=== PATIENT | male | born 1945 | race Caucasian/White ===

== ENCOUNTER 2023-12-07 16:54 | Emergency (ER) | payer OTHER, BC ==
[2023-12-07] MEDS ORDERED: HYDROCODONE/APAP 10/325 TAB ONE (18:06)
--- NOTE | 2023-12-07 19:53 | RAD REPORT ---
EXAM DESCRIPTION: CT - Chest Abd Pelvis Wo Con - 12/07/2023 7:02 pm CLINICAL HISTORY: BLUNT CHEST TRAUMA COMPARISON: No comparisons TECHNIQUE: Thin axial CT images of the chest, abdomen, and pelvis, performed without IV contrast. Mu ltiplanar reformats were generated and reviewed. All CT scans are performed using dose optimization technique as appropriate and may include automated exposure control or mA/KV adjustment according to patient size. FINDINGS: The lungs are clear.No pleural or pericardial effusion.No intrathoracic adenopathy. The liver, spleen, pancreas, adrenal glands and kidneys are within normal limits. No bowel obstruction, free air, free fluid or abscess. Left inguinal hernia containing nondistended l arge bowel. No pathologic lymphadenopathy in the abdomen or pelvis. Prostatomegaly. No worrisome osseous finding. IMPRESSION: No acute findings in the chest abdomen, or pelvis. Left inguinal hernia containing nondistended large bowel.
--- NOTE | 2023-12-07 20:03 | ER ---
Nurse's Notes [facility] Name: Miguel Oconnell Age: 78 yrs Sex: Male : 1945 Arrival Date: 12/07/2023 Time: 16:54 Bed 10 Private MD: Brenda Rajput Diagnosis: Fall from ladder;Chest wall pain;Left inguinal hernia Presentation: 12/06 17:07 Chief complaint: Patient states: Fell approximately 10 ft off of a ladder on 12/03 onto ss R shoulder. Pt c/o pain to R shoulder and R lateral chest wall. Denies LOC. Superficial abrasions noted to bilateral forearms and legs. Coronavirus screen: Client denies travel out of the [place] in the last 14 days. Ebola Screen: Patient denies exposure to infectious person. Patient denies travel to an Ebola-affected area in the 21 days before illness onset. Initial Sepsis Screen: Does the patient meet any 2 criteria? No. Patient's initial sepsis screen is negative. Does the patient have a suspected source of infection? No. Patient's initial sepsis screen is negative. Risk Assessment: Do you want to hurt yourself or someone else? Patient reports no desire to harm self or others. Onset of symptoms was December 04, 2023. 17:07 Method Of Arrival: Ambulatory ss 17:07 Acuity: SHAR 3 ss Triage Assessment: 17:11 General: Appears uncomfortable, Behavior is calm, cooperative. Pain: Complains of pain ss in R shoulder, R lateral chest wall Pain currently is 1 out of 10 on a pain scale. at worst was 8 out of 10 on a pain scale. Aggravated by increased activity. Neuro: Level of Consciousness is awake, alert, obeys commands, Oriented to person, place, time, situation. Respiratory: Airway is patent is compromised Respiratory effort is even, unlabored. Derm: Skin is intact, is healthy with good turgor, Skin is dry, Skin is pink, warm \T\ dry. normal. Historical: - Allergies: 17:11 No Known Allergies; ss - PMHx: 17:11 Hypertensive disorder; Abdominal aortic aneurysm; 3 cm; ss - PSHx: 17:11 None; ss - Immunization history:: Client reports receiving the 2nd dose of the Covid vaccine. - Infectious Disease History:: Denies. - Social history:: Smoking status: Patient denies any tobacco usage or history of. - Family history:: not pertinent. Screenin:00 [facility] ED Fall Risk Assessment (Adult) History of falling in the last 3 months, nj1 including since admission Yes- single mechanical fall (1 pt) Confusion or Disorientation No (0 pts) Intoxicated or Sedated No (0 pts) Impaired Gait No (0 pts) Mobility Assist Device Used No (0 pt) Altered Elimination No (0 pt) Score/Fall Risk Level 0 - 2 = Low Risk Oriented to surroundings, Maintained a safe environment, Hourly rounding (assess needs \T\ fall precautionary measures) done. Abuse screen: Denies threats or abuse. Denies injuries from another. Nutritional screening: No deficits noted. Tuberculosis screening: No symptoms or risk factors identified. Assessment: 18:00 General: Appears in no apparent distress. uncomfortable, Behavior is calm, cooperative, nj1 appropriate for age. Pain: Complains of pain in chest, right side Pain currently is 1 out of 10 on a pain scale. at worst was 8 out of 10 on a pain scale. 18:00 Neuro: Level of Consciousness is awake, alert, obeys commands, Oriented to person, nj1 place, time, situation. Cardiovascular: Patient's skin is warm and dry. Respiratory: Airway is patent Respiratory effort is even, unlabored. Musculoskeletal: Reports pain in chest. 18:47 Reassessment: Patient appears in no apparent distress at this time. Patient and/or nj1 family updated on plan of care and expected duration. Pain level reassessed. Patient is alert, oriented x 3, equal unlabored respirations, skin warm/dry/pink. 20:11 Reassessment: Patient appears in no apparent distress at this time. Patient and/or lg3 family updated on plan of care and expected duration. Pain level reassessed. Patient is alert, oriented x 3, equal unlabored respirations, skin warm/dry/pink. Patient states symptoms have improved. Vital Signs: 17:07 BP 132 / 81; Pulse 71; Resp 17; Temp 97.4(TE); Pulse Ox 99% on R/A; Weight 113.4 kg; ss Height 5 ft. 9 in. ; Pain 8/10; 20:11 BP 129 / 84; Pulse 76; Resp 16 S; Temp 97.1; Pulse Ox 99% on R/A; lg3 17:07 Body Mass Index 36.92 (113.40 kg, 175.26 cm) ss 17:07 Pain Scale: Adult ss ED Course: 16:58 Patient arrived in ED. mr 16:59 Uriahsupriya Brenda is Private Physician. mr 17:11 Triage completed. ss 17:11 Arm band placed on right wrist. ss 17:25 Jasen Og MD is Attending Physician. rt 17:57 Candace Monteiro, RN is Primary Nurse. nj1 18:00 Patient has correct armband on for positive identification. Bed in low position. Call nj1 light in reach. Adult w/ patient. Provided Education on: call light, fall precautions. 19:04 CT Chest Abdomen Pelvis W/O Contrast In Process Unspecified. EDMS 20:02 Santos Dee MD is Referral Physician. rt 20:13 No provider procedures requiring assistance completed. Patient did not have IV access lg3 during this emergency room visit. Administered Medications: 18:00 Drug: [place] PO 10 mg-325 mg 1 tabs PO once Route: PO; nj1 20:13 Follow up: Response: No adverse reaction; Marked relief of symptoms; Pain is decreased lg3 Medication: 20:11 VIS not applicable for this client. lg3 Outcome: 20:02 Discharge ordered by MD. rt 20:14 Discharged to home ambulatory, lg3 20:14 Condition: stable 20:14 Discharge instructions given to patient, Instructed on discharge instructions, follow up and referral plans. medication usage, Demonstrated understanding of instructions, follow-up care, medications, Prescriptions given X 1, 20:14 Patient left the ED. lg3 Signatures: Dispatcher [employer] EDWV Gaby Miller, Reg Reg Mariela Hollingsworth, RN RN Heather Carpenter RN RN lg3 Jasen Og MD MD rt Candace Motneiro, LU RN nj1
--- NOTE | 2023-12-07 20:03 | EDPHYS ---
Physician Documentation [facility] Name: Miguel Oconnell Age: 78 yrs Sex: Male : 1945 Arrival Date: 12/07/2023 Time: 16:54 Bed 10 Private MD: Brenda Rajput ED Physician Jasen Og HPI: 12/06 19:32 This 78 yrs old Male presents to ER via Ambulatory with complaints of Pain All Over, rt Fell off ladder 12/04/2023. 19:32 Patient presents to the ED with pain to the right side after falling about 10 feet off rt a ladder. [facility] is denying any significant arm pain at this time. Reports pain to the right side of the chest, abdomen. Worse with movement. Denies other acute complaints at this time, symptoms are moderate in severity, no other aggravating or alleviating factors.. 19:32 Denies hitting his head, loss of consciousness, back, neck pain. rt Historical: - Allergies: 17:11 No Known Allergies; ss - PMHx: 17:11 Hypertensive disorder; Abdominal aortic aneurysm; 3 cm; ss - PSHx: 17:11 None; ss - Immunization history:: Client reports receiving the 2nd dose of the Covid vaccine. - Infectious Disease History:: Denies. - Social history:: Smoking status: Patient denies any tobacco usage or history of. - Family history:: not pertinent. ROS: 19:32 Constitutional: Negative for fever, chills, and weight loss, Neck: Negative for injury, rt pain, and swelling, Respiratory: Negative for shortness of breath, cough, wheezing, and pleuritic chest pain, MS/Extremity: Negative for injury and deformity, Skin: Negative for injury, rash, and discoloration, Neuro: Negative for headache, weakness, numbness, tingling, and seizure, Psych: Negative for depression, anxiety, suicide ideation, homicidal ideation, and hallucinations, 19:32 Cardiovascular: Positive for chest pain, Negative for edema, 19:32 Respiratory: 19:32 Abdomen/GI: Positive for abdominal pain, Negative for nausea and vomiting, Exam: 19:34 Constitutional: This is a well developed, well nourished patient who is awake, alert, rt and in no acute distress. Head/Face: Normocephalic, atraumatic. Neck: Trachea midline, no thyromegaly or masses palpated, and no cervical lymphadenopathy. Supple, full range of motion without nuchal rigidity, or vertebral point tenderness. No Meningismus. Cardiovascular: Regular rate and rhythm with a normal S1 and S2. No gallops, murmurs, or rubs. Normal PMI, no JVD. No pulse deficits. Respiratory: Lungs have equal breath sounds bilaterally, clear to auscultation and percussion. No rales, rhonchi or wheezes noted. No increased work of breathing, no retractions or nasal flaring. Back: No spinal tenderness. No costovertebral tenderness. Full range of motion. Skin: Warm, dry with normal turgor. Normal color with no rashes, no lesions, and no evidence of cellulitis. MS/ Extremity: Pulses equal, no cyanosis. Neurovascular intact. Full, normal range of motion. Neuro: Awake and alert, GCS 15, oriented to person, place, time, and situation. Cranial nerves II-XII grossly intact. Motor strength 5/5 in all extremities. Sensory grossly intact. Cerebellar exam normal. Normal gait. 19:34 Chest/axilla: Tenderness over right lower chest, no crepitus, deformities. 19:34 Abdomen/GI: Mild tenderness on the right upper side, abdomen, no bruising, distention, Vital Signs: 17:07 BP 132 / 81; Pulse 71; Resp 17; Temp 97.4(TE); Pulse Ox 99% on R/A; Weight 113.4 kg; ss Height 5 ft. 9 in. ; Pain 8/10; 20:11 BP 129 / 84; Pulse 76; Resp 16 S; Temp 97.1; Pulse Ox 99% on R/A; lg3 17:07 Body Mass Index 36.92 (113.40 kg, 175.26 cm) ss 17:07 Pain Scale: Adult ss MDM: 17:37 Patient medically screened. rt 20:04 Differential Diagnosis Rib fracture, pneumothorax, blunt chest trauma, liver rt laceration. Data reviewed: vital signs, nurses notes, radiologic studies. Independent interpretation of the following test(s) in the Emergency Department CT Scan: My interpretation is No pneumothorax seen on interpretation of CT scan images. Care significantly affected by the following chronic conditions: Hypertension. Counseling: I had a detailed discussion with the patient and/or guardian regarding the historical points, exam findings, and any diagnostic results supporting the discharge/admit diagnosis, radiology results, the need for outpatient follow up. 12/06 17:50 Order name: CT Chest Abdomen Pelvis W/O Contrast; Complete Time: 19:54 rt Administered Medications: 18:00 Drug: Ten[place] PO 10 mg-325 mg 1 tabs PO once Route: PO; nj1 20:13 Follow up: Response: No adverse reaction; Marked relief of symptoms; Pain is decreased lg3 Disposition Summary: 12/07/23 20:02 Discharge Ordered Notes: Location: Home rt Problem: new rt Symptoms: have improved rt Condition: Stable rt Diagnosis - Fall from ladder rt - Chest wall pain rt - Left inguinal hernia rt Followup: rt - With: Santos Dee MD - When: 7 - 10 days - Reason: Discharge Instructions: - Discharge Summary Sheet rt - Inguinal Hernia, Adult rt - Blunt Chest Trauma rt Forms: - Medication Reconciliation Form rt - Antibiotic Education rt - Prescription Opioid Use rt - Patient Portal Instructions rt - Leadership Thank You Letter rt Prescriptions: - acetaminophen-codeine 300-30 mg Oral tablet - take 1 tablet ORAL route every 6 hours as needed for pain; 12 tablet; Refills: rt 0, Product Selection Permitted Signatures: Dispatcher [employer] Mariela Lindsay, RN RN Jasen Davis MD MD rt Candace Monteiro RN RN nj1 Heather Carpenter RN lg3
[2023-12-07 21:48] VITALS: BP 129/84; TEMP 97.1; O2SAT 99
== END 2023-12-07 20:14 | disposition home or self-care (01) ==
LOC: ER 16:54
DX: R07.89 Other chest pain (principal); K40.90 Unilateral inguinal hernia, without obstruction or gangrene, not specified as recurrent; W11.XXXA Fall on and from ladder, initial encounter; I10 Essential (primary) hypertension
CPT/HCPCS: 71250; 74176

== ENCOUNTER 2025-05-18 16:45 | Emergency (ER) | payer OTHER, BC ==
[2025-05-18] MEDS ORDERED: LIDOCAINE 1% MPF 5 ML VIAL ONE (17:23)
--- NOTE | 2025-05-18 18:00 | RAD REPORT ---
EXAMINATION: Head Brain Wo Cont CLINICAL INDICATION: Male, 80 years old.TRAUMA TECHNIQUE: Axial CT images from the skull base to the vertex without intravenous contrast. Coronal an d sagittal reformatted images were created from the data set. One or more of the following dose reduction techniques were used: Automated exposure control, adjustment of the mA and/or kV according to patient size, and/or iterative reconstruction. Unless otherwise specified, incidental findings do not require dedicated imaging follow-up. [id number]. COMPARISON: No prior exams FINDINGS: INTRACRANIAL: No acute intracranial hemorrhage. No acute large vascular territory infarct. No hydroce phalus. No mass effect or midline shift. No significant white matter disease. VASCULATURE: No visualized abnormalities in the arteries or dural venous sinuses. SCALP/SKULL: No calvarial fracture identified. No acute soft tissue abnormality. SINUSES: The visualized paranasal sinuses are mostly clear. No significant mastoid fluid. IMPRESSION: No acute intracranial abnormality.
--- NOTE | 2025-05-18 18:11 | ER ---
Nurse's Notes [facility] Name: Miguel Oconnell Age: 80 yrs Sex: Male : 1945 Arrival Date: 05/18/2025 Time: 16:45 Bed 11 Private MD: Diagnosis: Laceration without foreign body of scalp Presentation: 05/18 17:12 Chief complaint: Chief complaint: Patient states: HEAD LACERATION STATES HIT TOP OF db HEAD ON EDGE OF A TABLE. DENIES LOC. STATES IS ON XARELTO. 17:14 Coronavirus screen: Client denies travel out of the [place] in the last 14 days. At this db time, the client does not indicate any symptoms associated with coronavirus-19. Ebola Screen: Patient negative for fever greater than or equal to 101.5 degrees Fahrenheit, and additional compatible Ebola Virus Disease symptoms Patient denies exposure to infectious person. Patient denies travel to an Ebola-affected area in the 21 days before illness onset. No symptoms or risks identified at this time. Initial Sepsis Screen: Does the patient meet any 2 criteria? No. Patient's initial sepsis screen is negative. Does the patient have a suspected source of infection? No. Patient's initial sepsis screen is negative. Risk Assessment: Do you want to hurt yourself or someone else? Patient reports no desire to harm self or others. Onset of symptoms was May 18, 2025. 17:14 Method Of Arrival: Ambulatory db 17:14 Acuity: SHAR 3 db Triage Assessment: 17:14 General: Appears in no apparent distress. comfortable, Behavior is calm, cooperative. db Pain: Complains of pain in left frontal area. Neuro: Level of Consciousness is awake, alert, obeys commands, Oriented to person, place, time, situation. Derm: Wound noted left frontal area. Historical: - Allergies: 17:16 No Known Allergies; db - PMHx: 17:14 abdominal aortic aneurysm; 3 cm; Hypertensive disorder; db - Immunization history:: Adult Immunizations unknown. - Infectious Disease History:: Denies. - Social history:: Smoking status: Patient denies any tobacco usage or history of. Screenin:00 [facility] ED Fall Risk Assessment (Adult) History of falling in the last 3 months, iw including since admission No falls in past 3 months (0 pts) Confusion or Disorientation No (0 pts) Intoxicated or Sedated No (0 pts) Impaired Gait No (0 pts) Mobility Assist Device Used No (0 pt) Altered Elimination No (0 pt) Score/Fall Risk Level 0 - 2 = Low Risk Oriented to surroundings, Maintained a safe environment. Abuse screen: Denies threats or abuse. Denies injuries from another. Nutritional screening: No deficits noted. Tuberculosis screening: No symptoms or risk factors identified. Assessment: 18:00 General: Appears Behavior is calm, cooperative. iw Vital Signs: 17:14 BP 130 / 80; Pulse 58; Resp 16; Temp 98.6; Pulse Ox 98% ; Weight 113.4 kg; Height 5 ft. db 9 in. ; 17:14 Body Mass Index 36.92 (113.40 kg, 175.26 cm) db ED Course: 16:50 Patient arrived in ED. sj2 16:51 Malia Haro PA-C is PHCP. sb4 16:51 Topher Bianchi MD is Attending Physician. sb4 17:14 Arm band placed on Patient placed. db 17:15 Triage completed. db 17:49 Head Brain Wo Cont CT In Process Unspecified. EDMS 18:25 Assist provider with laceration repair on left frontal area that was between 2.6 to 7.5 iw cm using jeovany. Set up tray. Performed by Malia Haro PA-C Patient tolerated well. Patient did not have IV access during this emergency room visit. 18:33 Pge Raya, RN is Primary Nurse. iw Administered Medications: 18:10 Drug: Lidocaine Infiltration (1 %) 5 ml 5 ml Infiltration once; to bedside Volume: 5 sb4 ml; Route: Infiltration; Medication: 18:00 VIS not applicable for this client. iw Outcome: 18:11 Discharge ordered by . sb4 18:33 Discharged to home ambulatory, with family, iw 18:33 Condition: good 18:33 Discharge instructions given to patient, Instructed on discharge instructions, follow up and referral plans. Demonstrated understanding of instructions, follow-up care, Prescriptions given X 18:35 Patient left the ED. iw Signatures: Dispatcher [employer] EDMS Peg Raya RN RN iw Valentina Vasques RN RN db Malia Haro PA-C PA-C sb4 Wesley Beltran sj2 Corrections: (The following items were deleted from the chart) 17:15 17:12 Chief complaint: db db
--- NOTE | 2025-05-18 18:12 | EDPHYS ---
Physician Documentation [facility] Name: Miguel Oconnell Age: 80 yrs Sex: Male : 1945 Arrival Date: 05/18/2025 Time: 16:45 Bed 11 Private MD: ED Physician Topher Bianchi HPI: 05/18 17:33 This 80 yrs old Male presents to ER via Ambulatory with complaints of Laceration To sb4 Head. 17:33 Patient states that he stood up and hit the top of his head on furniture, or sustaining sb4 a laceration. States that it bled a moderate amount that he is old Xarelto. He denies any loss of consciousness, dizziness, nausea, vomiting. Does report pain in the area of the laceration. States his tetanus shot is up-to-date. Historical: - Allergies: 17:16 No Known Allergies; db - PMHx: 17:14 abdominal aortic aneurysm; 3 cm; Hypertensive disorder; db - Immunization history:: Adult Immunizations unknown. - Infectious Disease History:: Denies. - Social history:: Smoking status: Patient denies any tobacco usage or history of. ROS: 17:33 Constitutional: Negative for fever, chills, and weight loss, sb4 17:33 Skin: Positive for laceration(s), of the left frontal area, 17:33 All other systems are negative, Exam: 17:33 Constitutional: This is a well developed, well nourished patient who is awake, alert, sb4 and in no acute distress. Eyes: Extra-ocular motions intact. Periorbital areas with no swelling, redness, or edema. ENT: Mucous membranes moist. Respiratory: No increased work of breathing, no retractions or nasal flaring. Skin: Warm, dry with normal turgor. Normal color with no rashes, no lesions, and no evidence of cellulitis. 17:33 Head/face: Noted is a laceration(s), that is superficial, 5 cm(s), of the left frontal area, 17:44 Skin: injury, laceration(s), the wound is approximately 5 cm(s), with a depth of .5 sb4 cm(s), of the left frontal area, that can be described as clean, no foreign body, irregular, with mild bleeding, Vital Signs: 17:14 BP 130 / 80; Pulse 58; Resp 16; Temp 98.6; Pulse Ox 98% ; Weight 113.4 kg; Height 5 ft. db 9 in. ; 17:14 Body Mass Index 36.92 (113.40 kg, 175.26 cm) db Laceration: 18:10 Wound Repair of 5cm ( 2.0in ) subcutaneous laceration to left frontal area. Irregularly sb4 shaped.. Distal neuro/vascular/tendon intact. Anesthesia: Local anesthetic administered with 4 mls of 1% lidocaine. Wound prep: Simple cleansing with betadine by me, Wound irrigation with saline by me, Wound explored, Copious irrigation. Skin closed with 4 Will using staple gun. Dressed with non-adherent dressing. Patient tolerated well. MDM: 16:52 Medical Screening Exam initiated sb4 18:10 Differential diagnosis: closed head injury, contusion, fracture, laceration. Data sb4 reviewed: vital signs, nurses notes, radiologic studies, CT scan, and as a result, I will discharge patient. Care significantly affected by the following chronic conditions: Hypertension. Counseling: I had a detailed discussion with the patient and/or guardian regarding the historical points, exam findings, and any diagnostic results supporting the discharge/admit diagnosis, radiology results, the need for outpatient follow up, for staple removal 1 week, to return to the emergency department if symptoms worsen or persist or if there are any questions or concerns that arise at home. 05/18 17:15 Order name: Head Brain Wo Cont CT; Complete Time: 18:00 sb4 05/18 17:15 Order name: Wound Care; Complete Time: 18:33 sb4 Administered Medications: 18:10 Drug: Lidocaine Infiltration (1 %) 5 ml 5 ml Infiltration once; to bedside Volume: 5 sb4 ml; Route: Infiltration; Disposition Summary: 05/18/25 18:11 Discharge Ordered Notes: Location: Home sb4 Problem: new sb4 Symptoms: have improved sb4 Condition: Stable sb4 Diagnosis - Laceration without foreign body of scalp sb4 Followup: sb4 - With: Private Physician - When: 1 week - Reason: Staple/Suture removal Discharge Instructions: - Discharge Summary Sheet sb4 - Laceration Care, Adult, [id number] sb4 - Sutures, [place], or Adhesive Wound Closure, [id number] sb4 Forms: - Patient Portal Instructions sb4 - Leadership Thank You Letter sb4 Addendum: 05/28/2025 07:59 Co-signature as Attending Physician, Topher Bianchi MD I agree with the assessment and c mckinley plan of care. Signatures: Dispatcher [employer] EDMS Topher Bianchi MD MD cha Benton, Danielle, RN RN Malia Francis, PAEmeliC PAEmeliC sb4 Corrections: (The following items were deleted from the chart) 05/18 17:15 17:15 Head Brain Wo Cont+CT.RAD.BRZ ordered. [facility] 17:44 17:33 Head/face: Noted is a laceration(s), that is superficial, 5 cm(s), of the left sb4 frontal area, sb4
[2025-05-18 19:43] VITALS: BP 130/80; TEMP 98.6; O2SAT 98
== END 2025-05-18 18:35 | disposition home or self-care (01) ==
LOC: ER 16:45
DX: S01.01XA Laceration without foreign body of scalp, initial encounter (principal)
CPT/HCPCS: 70450; 99283; 12032; J2003

== ENCOUNTER 2025-05-25 15:11 | Emergency (ER) | payer OTHER, BC ==
--- NOTE | 2025-05-25 16:00 | ER ---
Nurse's Notes [facility] Name: Miguel Oconnell Age: 80 yrs Sex: Male : 1945 Arrival Date: 05/25/2025 Time: 15:11 Bed 10 Private MD: Diagnosis: Encounter for staple removal Presentation: 05/25 15:49 Chief complaint: Patient states: Needs jeovany removed from scalp, placed 7 days ago. ll1 No fever or pain. Coronavirus screen: Client denies travel out of the [place] in the last 14 days. At this time, the client does not indicate any symptoms associated with coronavirus-19. Ebola Screen: Patient denies travel to an Ebola-affected area in the 21 days before illness onset. Initial Sepsis Screen: Does the patient meet any 2 criteria? No. Patient's initial sepsis screen is negative. Does the patient have a suspected source of infection? No. Patient's initial sepsis screen is negative. Risk Assessment: Do you want to hurt yourself or someone else? Patient reports no desire to harm self or others. Onset of symptoms was May 18, 2025. 15:49 Method Of Arrival: Ambulatory ll1 15:49 Acuity: SHAR 5 ll1 Historical: - Allergies: 15:49 No Known Allergies; ll1 - PMHx: 15:49 abdominal aortic aneurysm; 3 cm; Hypertensive disorder; ll1 - Immunization history:: Adult Immunizations up to date. - Social history:: Smoking status: Patient denies any tobacco usage or history of. - Family history:: not pertinent. - Hospitalizations: : No recent hospitalization is reported. Screenin:20 [facility] ED Fall Risk Assessment (Adult) History of falling in the last 3 months, jb4 including since admission No falls in past 3 months (0 pts) Confusion or Disorientation No (0 pts) Intoxicated or Sedated No (0 pts) Impaired Gait No (0 pts) Mobility Assist Device Used No (0 pt) Altered Elimination No (0 pt) Score/Fall Risk Level 0 - 2 = Low Risk Oriented to surroundings. 16:20 Abuse screen: Denies threats or abuse. Nutritional screening: No deficits noted. jb4 Tuberculosis screening: No symptoms or risk factors identified. Assessment: 16:20 General: Appears in no apparent distress. comfortable, Behavior is calm, cooperative, jb4 appropriate for age. Pain: Denies pain. Neuro: Level of Consciousness is awake, alert, obeys commands, Oriented to person, place, time, situation. Cardiovascular: Patient's skin is warm and dry. Derm: Skin is intact, Skin is pink, warm \T\ dry. Musculoskeletal: Circulation, motion, and sensation intact. Range of motion: intact in all extremities. 16:20 Respiratory: Airway is patent Respiratory effort is even, unlabored, Respiratory jb4 pattern is regular, symmetrical. Vital Signs: 15:49 BP 124 / 81; Pulse 62; Resp 16; Temp 97.8; Pulse Ox 99% on R/A; Weight 113.4 kg; Height ll1 5 ft. 9 in. ; Pain 0/10; 15:49 Body Mass Index 36.92 (113.40 kg, 175.26 cm) ll1 15:49 Pain Scale: Adult ll1 ED Course: 15:15 Patient arrived in ED. im 15:17 Ruben Irizarry MD is Attending Physician. rn 15:44 Arm band placed on Patient placed in an exam room, on a stretcher. jb4 15:50 Triage completed. ll1 16:20 Patient has correct armband on for positive identification. Bed in low position. Call jb4 light in reach. Side rails up X 1. Provided Education on: plan of care. 16:20 No provider procedures requiring assistance completed. Patient did not have IV access jb4 during this emergency room visit. Administered Medications: No medications were administered Medication: 16:30 VIS not applicable for this client. jb4 Outcome: 16:00 Discharge ordered by . rn 16:20 Discharged to home ambulatory, jb4 16:20 Condition: stable 16:20 Discharge instructions given to patient, Instructed on discharge instructions, follow up and referral plans. Demonstrated understanding of instructions, follow-up care, 16:28 Patient left the ED. jb4 Signatures: Ruben Irizarry MD MD rn Bryson, James, RN RN jb4 Kenny Barker RN RN 1 Justina Cantu Corrections: (The following items were deleted from the chart) 16:32 16:30 General: Appears in no apparent distress. comfortable, Behavior is calm, jb4 cooperative, appropriate for age, jb4 16:32 16:30 Pain: Denies pain. jb4 jb4 16:32 16:30 Neuro: Level of Consciousness is awake, alert, obeys commands, Oriented to jb4 person, place, time, situation, jb4 16:32 16:30 Respiratory: Airway is patent Respiratory effort is even, unlabored, Respiratory jb4 pattern is regular, symmetrical, jb4 16:32 16:30 Cardiovascular: Patient's skin is warm and dry. jb4 jb4 16:32 16:30 Derm: Skin is intact, Skin is pink, warm \T\ dry. jb4 jb4 16:32 16:30 Musculoskeletal: Circulation, motion, and sensation intact. Range of motion: jb4 intact in all extremities, jb4
--- NOTE | 2025-05-25 16:00 | EDPHYS ---
Physician Documentation [facility] Name: Miguel Oconnell Age: 80 yrs Sex: Male : 1945 Arrival Date: 05/25/2025 Time: 15:11 Bed 10 Private MD: ED Physician Ruben Irizarry HPI: 05/25 15:57 This 80 yrs old Male presents to ER via Ambulatory with complaints of Suture Removal. rn 15:57 Patient reports was told to return in 7 days after jeovany. Otherwise doing well. No rn drainage and appears healing well. Historical: - Allergies: 15:49 No Known Allergies; ll1 - PMHx: 15:49 abdominal aortic aneurysm; 3 cm; Hypertensive disorder; ll1 - Immunization history:: Adult Immunizations up to date. - Social history:: Smoking status: Patient denies any tobacco usage or history of. - Family history:: not pertinent. - Hospitalizations: : No recent hospitalization is reported. ROS: 15:57 Constitutional: Negative for fever, chills, and weight loss, rn Exam: 15:57 Constitutional: This is a well developed, well nourished patient who is awake, alert, rn and in no acute distress. Head/Face: 4 jeovany on top of head/scalp. Well-healed, no drainage Vital Signs: 15:49 BP 124 / 81; Pulse 62; Resp 16; Temp 97.8; Pulse Ox 99% on R/A; Weight 113.4 kg; Height ll1 5 ft. 9 in. ; Pain 0/10; 15:49 Body Mass Index 36.92 (113.40 kg, 175.26 cm) ll1 15:49 Pain Scale: Adult ll1 Procedures: 15:57 Suture/Staple removal: Removed 4 jeovany, from scalp, site appears well healed, Patient rn tolerated well. MDM: 15:17 Medical Screening Exam initiated rn 15:57 Data reviewed: vital signs, nurses notes, and as a result, I will discharge patient. rn Special discussion: I discussed with the patient/guardian in detail that at this point there is no indication for admission to the hospital. It is understood, however, that if the symptoms persist or worsen the patient needs to return immediately for re-evaluation. Administered Medications: No medications were administered Disposition Summary: 05/25/25 16:00 Discharge Ordered Notes: Location: Home rn Problem: new rn Symptoms: have improved rn Condition: Stable rn Diagnosis - Encounter for staple removal rn Followup: rn - With: Private Physician - When: As needed - Reason: Recheck today's complaints, Re-evaluation by your physician Discharge Instructions: - Discharge Summary Sheet rn - Sutures, Jeovany, or Adhesive Wound Closure rn Forms: - Medication Reconciliation Form rn - Antibiotic internal audit consultant - Prescription Opioid Use rn - Patient Portal Instructions rn - Leadership Thank You Letter rn Signatures: Ruben Irizarry MD MD rn Lewis, Lynsay, RN RN ll1
[2025-05-25 22:23] VITALS: BP 124/81; TEMP 97.8; O2SAT 99
== END 2025-05-25 16:28 | disposition home or self-care (01) ==
LOC: ER 15:11
DX: Z48.02 Encounter for removal of sutures (principal)
CPT/HCPCS: 99282